=== PATIENT | female | born 1995 | race Caucasian/White ===

== ENCOUNTER 2023-12-30 03:38 | Emergency (ER) | payer BC, SELFPAY ==
[2023-12-30 03:48] VITALS: BP 121/75; PULSE 91; RESP 18; TEMP 37.2; O2SAT 96; BMI 31.8
--- NOTE | 2023-12-30 03:53 | ED.GENADULT ---
HPI - General Adult General Time Seen by Provider: 03:53 Date Seen: 12/30/23 Chief complaint: Dizziness/Vertigo Stated complaint: Dizziness Time Seen by Provider: 12/30/23 03:43 Source: patient, family, RN notes reviewed and old records reviewed Mode of arrival: ambulatory Limitations: no limitations History of Present Illness HPI narrative: 20-year-old female who comes in with shortness of breath and dizziness. Patient has felt short of breath for the last 2 days with some nasal congestion. Denies chest pain, cough, leg swelling, nausea, vomiting, diarrhea. Since yesterday has noted dizziness at well. No dizziness was related still when she moves her eyes returns or head she feels dizzy, also has a whooshing noise in both ears. No vision changes, no numbness or tingling the arms or legs, no bowel problems. Related Data Home Medications Medication Instructions Recorded Confirmed bupropion HCl PO 12/30/23 insulin glargine subcut 12/30/23 insulin lispro .ROUTE 12/30/23 sertraline .ROUTE 12/30/23 Allergies Allergy/AdvReac Type Severity Reaction Status Date / Time No Known Drug Allergies Allergy Verified 12/30/23 03:51 [facility] Medical History (Updated 12/30/23 @ 03:57 by Yoli Araujo RN) Type 1 diabetes ?E10.9 - Type 1 diabetes mellitus without complications (ICD-10) Social History Smoking Status: Never smoker Do you use any of these nicotine containing products: None How often do you have a drink containing alcohol: never AUDIT-C Alcohol total score: 0 Non-prescribed substance use: denies use Exam Narrative: Exam Narrative: General: Well-developed and well-nourished, no acute distress Head: Atraumatic and normocephalic Eyes: Pupils are equal reactive, extraocular motions intact, conjunctiva clear ENT: Nares congested, left tympanic membrane bulging with no erythema, right tympanic membrane obscured by wax Neck: No midline cervical tenderness, full spontaneous range of motion the neck, trachea midline, no adenopathy Heart: Regular rate and rhythm no murmurs or thrills Lungs: Clear to auscultation bilaterally without wheezes or crackles Abdomen: Soft, nontender, nondistended with active bowel sounds Musculoskeletal: No tenderness, deformity, or edema Neurologic: Awake, alert, and oriented x3, no gross focal neurologic deficits, cranial nerves intact as tested. Able to elicit vertigo with lateral eye movements in both directions as well as turning head in each direction Psych: Mood and affect are appropriate Skin: No rashes Const: Vital Signs, click to edit/add: Vital Signs - 24 hr 12/30/23 03:48 Temperature 99.0 F Pulse Rate [Pulse Oximeter] 91 Respiratory Rate 18 Blood Pressure [Le ft Upper Arm] 121/75 Pulse Oximetry 96 Oxygen Delivery Me thod Room Air Course Course ED Course: Patient seen and examined, prior records are reviewed. Patient presents today with shortness of breath and runny nose as well as dizziness. Dizziness is described as room spinning, patient has no other neurologic symptoms and symptoms are provoked with eye movements and head movements. Most consistent with peripheral vertigo especially in conjunction with respiratory symptoms and whooshing noise in the ears, likely labyrinthitis, head CT ordered to evaluate for intracranial hemorrhage. Otherwise, on exam lungs are clear with no wheezing, no hypoxia, borderline tachycardia. Labs ordered Reevaluation(s) Time of Reevaluation #1: 04:51 Reevaluation #1: 04:51 labs ordered and independently interpreted be nm with normal white blood cell count, normal hemoglobin, basic panel blood glucose 154 otherwise negative, respiratory swab influenza B positive, troponin negative. CT scan of the head negative for acute findings. D-dimer is negative. Dizziness is better after fluids, Zofran, meclizine. Patient stable for discharge chest x-ray does demonstrate subtle patchy opacity of the right lung base consistent with patient's respiratory for infection. With no fever, no white blood cell count, duration of symptoms, that bacterial pneumonia is clinically unlikely Vital Signs Vital signs: Initial Vital Signs Temperature 99.0 F 12/30/23 03:48 Temperature Source Temporal Artery Scan 12/30/23 03:48 Pulse Rate 91 12/30/23 03:48 Respiratory Rate 18 12/30/23 03:48 Blood Pressure 121/75 12/30/23 03:48 Blood Pressure Mean 90 12/30/23 03:48 Blood Pressure Position Sitting 12/30/23 03:48 Pulse Oximetry 96 12/30/23 03:48 Oxygen Delivery Method Room Air 12/30/23 03:48 Vital Signs Temperature 99.0 F 12/30/23 03:48 Pulse Rate 91 12/30/23 03:48 Respiratory Rate 18 12/30/23 03:48 Blood Pressure 121/75 12/30/23 03:48 Pulse Oximetry 96 12/30/23 03:48 Oxygen Delivery Method Room Air 12/30/23 03:48 Temperature 99.0 F 12/30/23 03:48 Pulse Rate 91 12/30/23 03:48 Respiratory Rate 18 12/30/23 03:48 Blood Pressure 121/75 12/30/23 03:48 Pulse Oximetry 96 12/30/23 03:48 Oxygen Delivery Method Room Air 12/30/23 03:48 Medications Administered Medications: Generic Name Dose Route Start Last Admin Trade Name Freq PRN Reason Stop Dose Admin Sodium Chloride 1,000 mls @ 1,000 mls/hr 12/30/23 04:00 12/30/23 04:09 0.9 % Sodium Chloride 1000 Ml IV 12/30/23 04:59 1,000 mls/hr .Q1H MELA Administration Meclizine HCl 25 mg 12/30/23 03:56 12/30/23 04:09 Meclizine Hcl 25 Mg Tablet PO 12/30/23 03:57 25 mg ONCE ONE Administration Ondansetron HCl 4 mg 12/30/23 03:56 12/30/23 04:09 Ondansetron 2 Mg/Ml Inj IVP 12/30/23 03:57 4 mg ONCE ONE Administration Medical Decision Making Lab Data Labs: Lab Results 12/30/23 12/30/23 Range/Units 03:48 04:00 WBC 5.28 (4.50-11.00) K/uL RBC 4.46 (4.00-5.20) m/uL Hgb 12.6 (12.0-16.0) gm/dL Hct 37.9 (33.0-51.0) % MCV 85 (80-100) fL MCH 28 (26-34) pg MCHC 33 (32-36) gm/dL RDW Coeff of Dyllan 12.2 (11.5-15.5) % Plt Count 294 (140-440) K/uL Neut % (Auto) 67.8 (42.0-72.0) % Lymph % (Auto) 21.0 (20-44) % Bradford % (Auto) 9.7 (0.0-11.0) % Eos % (Auto) 0.9 (0.0-7.0) % Baso % (Auto) 0.6 (0.0-3.0) % Neut # (Auto) 3.58 (1.7-7.0) K/uL Lymph # (Auto) 1.11 (0.90-2.90) K/uL Bradford # (Auto) 0.50 (0.00-0.90) K/UL Eos # (Auto) 0.05 (0.00-0.50) K/uL Baso # (Auto) 0.03 (0.00-0.30) K/uL Abs Immat Gran (auto) 0.00 (0.00-0.30) K/uL Imm/Tot Granulo (auto) 0.0 % D-Dimer Quant (PE/DVT) 0.37 (0.00-0.50) ug/ml Sodium 135 (135-149) mmol/L Potassium 4.1 (3.6-5.1) mmol/L Chloride 103 (96-114) mmol/L Carbon Dioxide 22 (20-32) mmol/L Anion Gap 10 (7-15) mEq/L BUN 15 (5-24) mg/dL Creatinine 0.6 (0.5-1.5) mg/dL Estimated Creat Clear 120.54 Estimated GFR 125 ml/min Glucose 154 H (60-115) mg/dL Calcium 9.0 (8.4-10.6) mg/dL Magnesium 1.7 (1.5-2.6) mg/dL NT-Pro-B Natriuret Pep 21 pg/mL SARS-CoV-2 (PCR) Negative SARS-CoV-2 (Negative) Influenza Type A (PCR) Negative PCR FLU A (Negative) Influenza Type B (PCR) POSITIVE PCR FLU B A (Negative) RSV (PCR) Negative PCR RSV (Negative) POC Troponin I 0.00 L (0.01-0.04) ng/ml Discharge Plan Discharge Prescriptions: No Action bupropion HCl [Wellbutrin] PO insulin glargine [Lantus Solostar U-100 Insulin] subcut insulin lispro [Humalog U-100 Insulin] .ROUTE sertraline .ROUTE Follow Up/Referrals: Provider,Not a Local [Primary Care Provider] -
--- NOTE | 2023-12-30 03:56 | CT_ITS ---
Patient: VIRAJ GOLD Facility:?[facility] Patient ID:?[id number] Site Patient ID:?[id number] Site :?1995 Study:?CT-Head W/O-12/30/2023 4:23:46 AM Ordering Physician:VELASQUEZ Final Report: INDICATION: Dyspnea TECHNIQUE: CT head without contrast. COMPARISON: None. FINDINGS: CSF spaces: Within normal limits for age. Brain parenchyma and extra-axial spaces: The walsh-white differentiation is normal. No sign of mass, hemorrhage, or midline shift. No extra-axial fluid collection. Skull base and calvarium: Partial visualization of scattered mucosal thickening of the paranasal sinuses with air-fluid level within the left maxillary sinus. The visualized orbits are grossly unremarkable. No skull fractures. IMPRESSION: 1. Partial visualization of scattered mucosal thickening of the paranasal sinuses with air-fluid level within the left maxillary sinus. Recommend correlation for signs and symptoms of acute sinusitis. 2. Otherwise, no evidence of acute intracranial abnormality on this unenhanced CT. Please note that all CT scans at this facility use dose modulation, iterative reconstruction, and/or weight-based dosing when appropriate to reduce radiation dose to as low as reasonably achievable. Dictated by Travon Quinteros MD @ 12/30/2023 4:49:43 AM Signed by:?Travon Quinteros MD @12/30/2023 4:49:43 AM (Electronic Signature)
--- NOTE | 2023-12-30 03:56 | XR_ITS ---
Patient: VIRAJ GOLD Facility:?[facility] Patient ID:?[id number] Site Patient ID:?[id number] Site :?1995 Study:?XRay-Chest 2 VIEW-12/30/2023 4:20:12 AM Ordering Physician:VELASQUEZ Final Report: INDICATION: DYSPNEA TECHNIQUE: Chest 2 views. COMPARISON: None. FINDINGS: Cardiovascular and mediastinum: Heart size and vasculature are normal in caliber and appearance. Lungs and pleural spaces: Subtle patchy opacity at the right medial lung base may represent atelectasis or developing consolidation. No sign of pleural effusion. No pneumothorax. Bones and soft tissues: No significant findings. IMPRESSION: Subtle patchy opacity at the right medial lung base may represent atelectasis or developing consolidation. Dictated by Travon Quinteros MD @ 12/30/2023 4:37:20 AM Signed by:?Travon Quinteros MD @12/30/2023 4:37:20 AM (Electronic Signature)
[2023-12-30] MEDS: ONDANSETRON 2 MG/ML inj 4 MG IVP (04:09)
[2023-12-30] MEDS: MECLIZINE HCL 25 MG TABLET PO (04:09)
[2023-12-30] MEDS: 0.9 % SODIUM CHLORIDE 1000 ml 1,000 ML IV (04:09)
[2023-12-30 04:10] LABS: Basophils Absolute Auto 0.03 K/uL (0.00-0.30); Basophils Percent Auto 0.6 % (0.0-3.0); Eosinophils Absolute Auto 0.05 K/uL (0.00-0.50); Eosinophils Percent Auto 0.9 % (0.0-7.0); Hematocrit 37.9 % (33.0-51.0); Hemoglobin* 12.6 gm/dL (12.0-16.0); Lymphocytes Absolute Auto 1.11 K/uL (0.90-2.90); Mean Corpuscular HGB Conc 33 gm/dL (32-36); Mean Corpuscular Hemoglobin 28 pg (26-34); Mean Corpuscular Volume 85 fL (80-100); Monocytes Percent Auto 9.7 % (0.0-11.0); Neutrophils Absolute Auto 3.58 K/uL (1.7-7.0); Neutrophils Percent Auto 67.8 % (42.0-72.0); Platelet Count* 294 K/uL (140-440); RDW Coefficient of Variation % 12.2 % (11.5-15.5); Red Blood Count 4.46 m/uL (4.00-5.20); White Blood Count* 5.28 K/uL (4.50-11.00)
[2023-12-30 04:14] LABS: Slide Review Reflex No
[2023-12-30 04:21] LABS: Chloride* 103 mmol/L (96-114); Potassium* 4.1 mmol/L (3.6-5.1); Sodium* 135 mmol/L (135-149)
[2023-12-30 04:23] LABS: Creatinine* 0.6 mg/dL (0.5-1.5); Est. Creatinine Clearance* 120.54; Estimated Glomerular Filt Rate 125 ml/min
[2023-12-30 04:24] LABS: Anion Gap 10 mEq/L (7-15); Blood Urea Nitrogen* 15 mg/dL (5-24); Carbon Dioxide* 22 mmol/L (20-32); Glucose* 154 mg/dL (60-115)
[2023-12-30 04:25] LABS: Magnesium* 1.7 mg/dL (1.5-2.6)
[2023-12-30 04:34] LABS: PCR FLU A Negative PCR FLU A (Negative); PCR FLU B POSITIVE PCR FLU B (Negative); PCR RSV Negative PCR RSV (Negative); SARS PCR* Negative SARS-CoV-2 (Negative)
[2023-12-30 04:36] LABS: NT Pro B Type NatriureticPept* 21 pg/mL
[2023-12-30 04:37] LABS: D Dimer Quantitative* 0.37 ug/ml (0.00-0.50)
--- OUTSIDE RECORDS SUMMARY | 2023-12-30 04:41 | XMS_ITS | Clinical Summary ---
Author Name Unknown Organization [facility] Address [id number] [address] Care Team Providers Care Lease Operator Name Role Phone Unavailable Primary Care Provider Unavailabl e Source Comments You are receiving this document as you are listed as the primary care provider,follow-up provider, or the patient has been referred to you for consultation.This is in compliance with the Medicare and[facility] E[facility] Incentive Program,which states Providers who transition their patient to another setting of careor provider of care or refers their patient to another provider of care shouldprovide summary care record for each transition of care or referral. [facility] Allergies No known active allergies Medications Medication Sig Dispensed Refills Start Date End Date Status insulin glargine (BASAGLAR) 100 UNIT/ML KWIKPEN INJECT 32 UNITS UNDER THE SKIN AT BEDTIME 08/08/2020 Active HUMALOG KWIKPEN 100 UNIT/ML injection pen 07/14/2020 Active BD PEN NEEDLE LUIS U/F 32G X 4 MM INJECT SUBCUTANEOUS 6 TIMES DAILY 07/15/2020 Active sertraline (ZOLOFT) 100 MG tablet Take 100 mg by mouth daily. 09/17/2020 Active Active Problems Problem Noted Date Diagnosed Date Depression 05/14/2017 History of section 05/08/2017 Papanicolaou smear of cervix with low grade squamous intraepithelial lesion (LGSIL) 04/19/2017 Overview: 04/19/17 Pap LSIL. Plan: pap in 1 year. Tracking started. 09/21/18 Patient is lost to pap tracking follow-up. Encounter for long-term (current) use of insulin 03/16/2016 Type 1 diabetes mellitus without complication Adjustment disorder with depressed mood 02/02/20 13 Immunizations Name Administration Dates Next Due DTP-Hib (Tetramune) 06/07/1996,04/05/1996,1995 DTaP 05/31/2001,02/19/1997 Flu Vac (3+ yrs) 08/09/2010, 8,08/09/2007,2005,07/23/2005,07/19/2004,08/06/2003 HepB Adult (Engerix-B, 20+ y rs, 3 dose series) 06/07/1996,01/18/1996,1995 IPV (Polio) 05/31/2001 Influenza IIV4 (Quadrivalent ) 0.5mL ([id number]) 07/19/2017 Influenza, Unspecified Formulation 10/03/2011 MMR 09/02/2017,05/31/2001,02/19/1997 OPV, Trivalent (Orimune or tOPV) 06/07/1996,03/25,01/18/1996 PPSV23 (Pneumovax) 09/02/2017,10/18/2015 Tdap 07/05/2017,10/18/2015,04/07/2008 Family History Medical History Relation Name Comments Anxiety Mother Depression Mother Thyroid Disorder Mother Bipolar Disorder Brother 1 Depression Brother 2 Anxiety Brother 3 Depression Brother 3 Parkinsons Maternal Grandfather Cancer, Skin Maternal Grandmother COPD Paternal Grandfather Cancer, Breast Paternal Grandmother Anxiety Sister Depression Sister Relation Name Status Comments Mother Brother 1 Other bipolar manic Brother 2 Brother 3 Maternal Grandfather Maternal Grandmother Paternal Grandfather Paternal Grandmother diagnos ed at age 82 Sister Social History Tobacco Use Types Packs/Day Years Used Date Smoking Tobacco: Never Smokeless Tobacco: Never Alcohol Use Standard Drinks/Week Comments Yes 0 (1 standard drink = 0.6 oz pur e alcohol) occasional Sex and Gender Information Value Date Recorded Sex Assigned at Not on file Gender Identity Not on file Sexual Orientation Not on file Last Filed Vital Signs Vital Sign Reading Time Taken Comments Blood Pressure 126/71 09/28/2020 2:25 PM RECORDS MANAGEMENT SPECIALIST Pulse 60 09/28/2020 2:25 PM RECORDS MANAGEMENT SPECIALIST Temperature 36.7 ??C (98 ??F) 09/28/2020 2:25 PM RECORDS MANAGEMENT SPECIALIST Respiratory Rate 18 09/28/2020 2:25 PM RECORDS MANAGEMENT SPECIALIST Oxygen Saturation 98% 09/28/2020 2:25 PM RECORDS MANAGEMENT SPECIALIST Inhaled Oxygen Concentration - - Weight 74.8 kg (165 lb) 09/28/2020 2:25 PM RECORDS MANAGEMENT SPECIALIST Height 162.6 cm (5' 4) 09/28/2020 2:25 PM RECORDS MANAGEMENT SPECIALIST Body Mass Index 28.32 09/28/2020 2:25 PM RECORDS MANAGEMENT SPECIALIST Plan of Treatment Health Maintenance Due Date Last Done Comments Cervical Cancer Screening Due 1995 Diabetes: Creatinine 1995 Diabetes: Eye Exam 1995 Diabetes: Foot Exam 1995 Diabetes: HGBA1C 1995 Diabetes: Lipid Panel 1995 Diabetes: Urine Microalbumin 1995 Hep C Screening (Preventive Services) 1995 HIV Screening (Preventive Services) 2011 Adult Preventive Visit 2013 Pneumococcal (2 - PCV) 09/02/2018 09/02/2017, 2015 COVID-19 Vaccine (2022- season) 2023 Influenza (#1) 2023 07/19/2017, 05/2012, 08/09/2010, Additional history exists DTaP/Tdap/Td (9 - Tdap) 07/05/2027 07/05/20, 10/18/2015, 04/07/2008, Additional history exists Zoster/Shingles (1 of 2) 2045 HepB Completed 06/07/1996, 12/25, 1995 Hib Aged Out 06/07/1996, 03/25, 01/18/1996 No longer eligible based on patient's age to complete this topic IPV (Polio) Completed 05/31/2001, 05/26, 04/05/1996, Additional history exists HPV Vaccine Aged Out No longer eligi ble based on patient's age to complete this topic HepA Aged Out No longer eligi ble based on patient's age to complete this topic MCV4 Aged Out No longer eligi ble based on patient's age to complete this topic
[2023-12-30 05:04] VITALS: BP 118/68; PULSE 84; RESP 18; TEMP 37.2; O2SAT 96
== END 2023-12-30 05:05 | disposition home or self-care (01) ==
PROVIDERS: Emergency Provider Family Medicine
DX: J10.1 Influenza due to other identified influenza virus with other respiratory manifestations (principal)
CPT/HCPCS: 36415; 70450; 71046; 80048; 83735; 83880; 84484; 85025; 85379; 87631; 93005; 96374; 99284; 99285; A9270; J2405; J7030

== ENCOUNTER 2024-10-17 09:01 | Emergency (ER) | payer BC, SELFPAY ==
[2024-10-17 09:04] VITALS: BP 102/70; PULSE 119; RESP 18; TEMP 37.7; O2SAT 99; BMI 30.9
--- NOTE | 2024-10-17 09:15 | ED_ITS ---
HPI - General Adult General Chief complaint: Cough Stated complaint: Shortness of breath Time Seen by Provider: 10/17/24 09:15 History of Present Illness HPI narrative: Patient presents to the emergency department complaining of a cough. Patient has been experiencing this cough x2 days as well as nausea and some dizziness. Yesterday morning patient started to feel like she couldn't take a deep breath. Patient has been trying to treat her cough with OTC medications with some success but the breathing never subsided. Recent sick contacts in the household. 29-year-old woman presenting to the emergency department with concern of cough and nausea and some lightheadedness. Symptoms over the last couple of days. Achy all over as well. Feeling like she could not take a deep breath. Vomited a couple of times this morning. Underlying history of type 1 diabetes with [employer] monitoring. Cold symptoms and family. Has not measured a fever. No abdominal pain really. No noted chest pain. Related Data Home Medications ?Medication ?Instructions ?Recorded ?Confirmed bupropion HCl PO 12/30/23 insulin glargine subcut 12/30/23 insulin lispro .Route 12/30/23 sertraline .Route 12/30/23 Allergies Allergy/AdvReac Type Severity Reaction Status Date / Time No Known Drug Allergies Allergy Verified 10/17/24 09:11 Review of Systems Status of ROS: Reports: 6 or more systems reviewed and unremarkable except as noted in History and below [facility] Medical History Type 1 diabetes ?E10.9 - Type 1 diabetes mellitus without complications (ICD-10) Social History Smoking Status: Never smoker Do you use any of these nicotine containing products: None How often do you have a drink containing alcohol: never AUDIT-C Alcohol total score: 0 Non-prescribed substance use: denies use Exam Narrative: Exam Narrative: Pleasant. Looks like she does not feel very good. Sounds congested in the nasopharynx. Oropharynx is moist. Not erythematous. Lungs are clear. Heart is in elevated rate and regular rhythm. No murmur noted. Abdomen is soft. Extremities are well perfused without edema. Const: Vital Signs, click to edit/add: Vital Signs - 24 hr 10/17/24 09:04 10/17/24 10:55 Temperature 99.8 F H 100.8 F H Pulse Rate [Right Pulse Oximeter] 119 H 95 Respiratory Rate 18 18 Blood Pressure [Ri ght Upper Arm] 102/70 113/68 Pulse Oximetry 99 98 Oxygen Delivery Me thod Room Air Room Air Documenting provider has reviewed patient's vital signs: yes Course Vital Signs Vital signs: Initial Vital Signs Temperature 99.8 F H 10/17/24 09:04 Temperature Source Temporal Artery Scan 10/17/24 09:04 Pulse Rate 119 H 10/17/24 09:04 Pulse Rhythm Regular 10/17/24 09:04 Pulse Strength 3+ Normal 10/17/24 09:04 Respiratory Rate 18 10/17/24 09:04 Blood Pressure 102/70 10/17/24 09:04 Blood Pressure Mean 80 10/17/24 09:04 Blood Pressure Position Sitting 10/17/24 09:04 Pulse Oximetry 99 10/17/24 09:04 Oxygen Delivery Method Room Air 10/17/24 09:04 Vital Signs Temperature 99.8 F H 10/17/24 09:04 Pulse Rate 119 H 10/17/24 09:04 Respiratory Rate 18 10/17/24 09:04 Blood Pressure 102/70 10/17/24 09:04 Pulse Oximetry 99 10/17/24 09:04 Oxygen Delivery Method Room Air 10/17/24 09:04 Temperature 100.8 F H 10/17/24 10:55 Pulse Rate 95 10/17/24 10:55 Respiratory Rate 18 10/17/24 10:55 Blood Pressure 113/68 10/17/24 10:55 Pulse Oximetry 98 10/17/24 10:55 Oxygen Delivery Method Room Air 10/17/24 10:55 Medications Administered Medications: Discontinued Medications Generic Name Dose Route Start Last Admin Trade Name Freq PRN Reason Stop Dose Admin Sodium Chloride 1,000 mls @ 1,000 mls/hr 10/17/24 09:48 10/17/24 10:03 0.9 % Sodium Chloride 1000 Ml IV 10/17/24 10:47 1,000 mls/hr .Q1H ONE Administration Ketorolac Tromethamine 15 mg 10/17/24 10:21 10/17/24 10:44 Ketorolac 15 Mg/Ml Inj IVP 10/17/24 10:22 15 mg ONCE ONE Administration Ondansetron HCl 4 mg 10/17/24 09:48 10/17/24 10:04 Ondansetron 2 Mg/Ml Inj IVP 10/17/24 09:49 4 mg ONCE ONE Administration Medical Decision Making MDM Narrative Medical decision making narrative: Considering community prevalence I would suspect influenza a here. She would appreciate some IV fluids and antiemetic. I think in setting of diabetes type 1 this is even more important. If positive for flu would also offer Tamiflu with comorbidities. May have other viral process. Will screen with triple swab. Urinalysis if readily available. IV hydration and antiemetic Feels somewhat improved with partial L already infused. Zofran was given as well. She is positive for influenza A. Did order ketorolac for myalgias and for mildly elevated temperature. Discussed lab findings. See patient discharge plan for further discussion Of course, focus on hydration. Consider sleeping under the mist of a cool mist humidifier. Menthol vapors might be helpful. Can take up to 800 mg of ibuprofen or up to 1000 mg of acetaminophen per dose. We will be prescribing Tamiflu for you. This is coming from [facility] along with a prescription for Zofran for nausea. Be seen for intractable vomiting, inability to control fever, increasing persistent shortness of breath. Medical Records Medical records reviewed: Yes I reviewed the patient's medical records Lab Data Lab results reviewed: Yes I reviewed the patient's lab results Labs: Lab Results 10/17/24 Range/Units 09:20 SARS-CoV-2 (PCR) Negative SARS-CoV-2 (Negative) Influenza Type A (PCR) POSITIVE PCR FLU A A (Negative) Influenza Type B (PCR) Negative PCR FLU B (Negative) RSV (PCR) Negative PCR RSV (Negative) Discharge Plan Discharge Clinical Impression: Influenza A, Myalgia Condition: Improved Additional Instructions: Of course, focus on hydration. Consider sleeping under the mist of a cool mist humidifier. Menthol vapors might be helpful. Can take up to 800 mg of ibuprofen or up to 1000 mg of acetaminophen per dose. We will be prescribing Tamiflu for you. This is coming from [facility] along with a prescription for Zofran for nausea. Be seen for intractable vomiting, inability to control fever, increasing persistent shortness of breath. Prescriptions: No Action bupropion HCl [Wellbutrin] PO insulin glargine [Lantus Solostar U-100 Insulin] subcut insulin lispro [Humalog U-100 Insulin] .Route sertraline .Route Follow Up/Referrals: Provider,Not a Local [Primary Care Provider] -
[2024-10-17 10:01] LABS: PCR FLU A POSITIVE PCR FLU A (Negative); PCR FLU B Negative PCR FLU B (Negative); PCR RSV Negative PCR RSV (Negative); SARS PCR* Negative SARS-CoV-2 (Negative)
[2024-10-17] MEDS: 0.9 % SODIUM CHLORIDE 1000 ml 1,000 ML IV (10:03)
[2024-10-17] MEDS: ONDANSETRON 2 MG/ML inj 4 MG IVP (10:04)
[2024-10-17] MEDS: KETOROLAC 15 MG/ML inj IVP (10:44)
[2024-10-17 10:55] VITALS: BP 113/68; PULSE 95; RESP 18; TEMP 38.2; O2SAT 98
== END 2024-10-17 11:10 | disposition home or self-care (01) ==
PROVIDERS: Emergency Provider Family Medicine
DX: J09.X2 Influenza due to identified novel influenza A virus with other respiratory manifestations (principal)
CPT/HCPCS: 81001; 87631; 96374; 96375; 99283; 99284; J1885; J2405; J7030